=== PATIENT | male | born 1985 | race Caucasian/White ===

== ENCOUNTER 2017-03-06 07:46 | Outpatient (CLI) | payer OTHER ==
--- NOTE | 2017-03-06 14:44 | MRI Report ---
EXAM: LEFT HAND MRI WITHOUT CONTRAST EXAM DATE: 03/06/2017 10:58 AM. CLINICAL HISTORY: Bilateral second metacarpophalangeal joint pain for 2 years. ? Arthritis. COMPARISON: MRI 11/27/2015. TECHNIQUE: Multiplanar, multisequence T1-weighted and fluid-sensitive sequences of the hand without c ontrast. Other: None. FINDINGS: Bones: There is a small effusion in the second metacarpophalangeal joint. The hyaline cartilage appea rs unremarkable. There is no marrow edema. There are no other joint effusions. There are no foci of m arrow edema. Cartilage: The articular cartilage is unremarkable. Ligaments: The visualized collateral ligaments are intact. Tendons: The flexor and extensor tendons are unremarkable. Musculature: No edema or fatty atrophy. Other: No joint effusions. The subcutaneous tissues are unremarkable. IMPRESSION: Small effusion of the second metacarpophalangeal joint. No associated marrow edema to sug gest erosions or trauma. [facility] SECTION Referring Provider Line: [phone] SITE ID: [id number]
--- NOTE | 2017-03-06 14:53 | MRI Report ---
EXAM: RIGHT HAND MRI WITHOUT CONTRAST EXAM DATE: 03/06/2017 10:59 AM. CLINICAL HISTORY: Bilateral second metacarpophalangeal joint pain for 2 years. ? Arthritis COMPARISON: None. TECHNIQUE: Multiplanar, multisequence T1-weighted and fluid-sensitive sequences of the hand without c ontrast. Other: None. FINDINGS: Bones: No fractures or subluxations. No marrow edema. No bone lesions. Cartilage: The articular cartilage is unremarkable. Ligaments: The visualized collateral ligaments are intact. Tendons: The flexor and extensor tendons are unremarkable. Musculature: No edema or fatty atrophy. Other: There is an effusion in the second metacarpophalangeal joint. There are no other visible joint effusions. There is no marrow edema and there are no erosions. The subcutaneous tissues are unremark able. IMPRESSION: 1. Effusion of the second metacarpophalangeal joint without associated marrow edema or erosions to andrade ggest inflammatory arthropathy. [facility]CUL[facility] SECTION Referring Provider Line: [phone] SITE ID: [id number]
== END 2017-03-06 07:47 | disposition home or self-care (01) ==
LOC: DI 07:46
PROVIDERS: ATTEND Internal Medicine Rheumatology
DX: M79.642 Pain in left hand (principal); M79.641 Pain in right hand; M25.442 Effusion, left hand; M25.441 Effusion, right hand